=== PATIENT | female | born 1995 | race Two or more races ===

== ENCOUNTER 2017-09-07 20:07 | Emergency (ER) | payer MEDICAID ==
[~2017-09-07] VITALS: Ht 149.9 cm; Wt 42.2 kg
[2017-09-07] MEDS ORDERED: IV NS 0.9% 1,000 ML BAG IV ONE (22:00)
[2017-09-07 22:02] LABS: BASOPHILS % (AUTO) 0.3 % (0.0-2.0); HEMATOCRIT 45 % (33-45); HEMOGLOBIN 15.1 g/dL (11.5-14.8); LYMPHOCYTES # (AUTO) 2.2 /CMM (0.8-4.8); LYMPHOCYTES % (AUTO) 27.7 % (20.0-44.0); MEAN CORPUSCULAR HGB CONC 34 g/dl (31.0-36.0); MEAN CORPUSCULAR VOLUME 88 fL (82-100); MONOCYTES # (AUTO) 0.4 /CMM (0.1-1.30); NEUTROPHILS # (AUTO) 5.3 /CMM (1.8-8.9); PLATELET COUNT (AUTO) 306 /CMM (150-450); RDW COEFFICIENT OF VARIATION 13.6 (11.5-15.0); RED BLOOD CELL COUNT(AUTO) 5.09 MIL/uL (4.0-5.2)
[2017-09-07 22:23] LABS: APPEARANCE,URINE CLEAR (CLEAR); BILIRUBIN,URINE NEGATIVE (NEGATIVE); BLOOD, URINE TRACE-INTA Ery/uL (NEGATIVE); CARBON DIOXIDE 25 mmol/L (21-32); CHLORIDE 105 mmol/L (98-107); COLOR,URINE YELLOW (YELLOW); CREATININE 0.7 mg/dL (0.6-1.3); GLUCOSE 107 mg/dL (74-106); KETONES,URINE NEGATIVE (NEGATIVE); LEUKOCYTE ESTERASE ,URINE NEGATIVE (NEGATIVE); NITRITE, URINE NEGATIVE (NEGATIVE); PROTEIN,URINE NEGATIVE (NEGATIVE); SODIUM SERUM 140 mmol/L (136-145); UGLUCOSE NEGATIVE (NEGATIVE); UREA NITROGEN, BLOOD 7 mg/dL (7-18); UROBILINOGEN,URINE 0.2 EU/dL (0.2)
[2017-09-07 22:28] LABS: TROPONIN I < 0.017 ng/mL (0.00-0.056)
[2017-09-07 22:29] LABS: ALANINE AMINOTRANSFERASE 20 U/L (12-78); ALBUMIN 4.5 g/dL (3.4-5.0); ALKALINE PHOSPHATASE 61 U/L (46-116); ASPARTATE AMINOTRANSFERASE 20 U/L (15-37); BILIRUBIN,DIRECT 0.1 mg/dL (0.0-0.2); BILIRUBIN,TOTAL 0.5 mg/dL (0.2-1.0); TOTAL PROTEIN, SERUM 8.2 g/dL (6.4-8.2)
[2017-09-07 22:32] LABS: BACTERIA,URINE Few /HPF (None Seen); MUCUS,URINE Moderate /LPF (None Seen); SQUAMOUS EPITHELIAL CELL,UR Few /HPF (None Seen); WBC,URINE 0-2 /HPF (0-3)
[2017-09-07 22:41] LABS: INR 1.1 (0.87-1.13)
[2017-09-07] MEDS ORDERED: POTASSIUM CHLORIDE 20 MEQ TAB.PRT.SR PO ONE ×2 (23:00→23:07)
--- NOTE | 2017-09-07 23:15 | NUR ---
RECEIVED REPORT FROM KENDRA DANIEL FOR REBECCA. PT APPEARS COMFORTABLE. VSS.
--- NOTE | 2017-09-07 23:25 | NUR ---
PT TO CT.
[2017-09-07] MEDS ORDERED: IOHEXOL-350 100 ML VIAL IV ONE (23:27)
--- NOTE | 2017-09-07 23:34 | NUR ---
PT RETURNED FROM CT.
--- NOTE | 2017-09-08 00:45 | NUR ---
[facility] [employer] SPEAKING TO PT REGARDING POC/ RESULTS.
--- NOTE | 2017-09-08 00:48 | NUR ---
IV removed. Catheter intact and site benign. Pressure and 4x4 applied to site. No bleeding noted. Patient discharged to home in stable condition. Written and verbal after care instructions given. Patient verbalizes understanding of instruction. ambulatory with a steady gait. instructed pt not to drive. pt verbalize understanding.
[2017-09-08 00:49] VITALS: BP 125/62
== END 2017-09-08 00:49 | disposition home or self-care (01) ==
LOC: ER 20:07
DX: R42 Dizziness and giddiness (principal); R00.2 Palpitations; R79.1 Abnormal coagulation profile
CPT/HCPCS: 36415; 71275; 80048; 80076; 80305; 81001; 84484; 84703; 85025; 85378; 85730; 93005; 96360; 99285; A4606; J7030; Q9967; Z7610; 81000-TC

== ENCOUNTER 2017-12-19 23:28 | Emergency (ER) | payer MEDICAID ==
[~2017-12-19] VITALS: Ht 152.4 cm; Wt 39.9 kg
[2017-12-19] MEDS ORDERED: LORAZEPAM 1 MG TABLET ONE (23:59)
[2017-12-20] MEDS ORDERED: LORAZEPAM 1 MG TABLET PO ONE
--- NOTE | 2017-12-20 00:01 | NUR ---
BIBFRIEND C/O HEADACHE W/MULTIPLE OTHER COMPLAINTS. DENIES TRAUMA. PT DENIES N/V/D. PT DENIES DIZZINESS OR BLURRED VISSION. SKIN WARM AND DRY. PT IS AAOX4. NO S/S OF ACUTE DISTRESS NOTED. RR EVEN AND UNLABORED. PT PLACED ON LAY OUT INSPECTOR AND POX. PT SAFETY AND COMFORT MEASURES IN PLACE. BEDSIDE FOR EVAL
--- NOTE | 2017-12-20 00:04 | NUR ---
EMT BEDSIDE FOR ECG
[2017-12-20 00:23] LABS: BASOPHILS % (AUTO) 0.3 % (0.0-2.0); HEMATOCRIT 42 % (33-45); HEMOGLOBIN 13.8 g/dL (11.5-14.8); LYMPHOCYTES # (AUTO) 2.7 /CMM (0.8-4.8); LYMPHOCYTES % (AUTO) 28.4 % (20.0-44.0); MEAN CORPUSCULAR HGB CONC 33 g/dl (31.0-36.0); MEAN CORPUSCULAR VOLUME 86 fL (82-100); MONOCYTES # (AUTO) 0.6 /CMM (0.1-1.30); MONOCYTES % (AUTO) 6.2 % (2.0-12.0); NEUTROPHILS # (AUTO) 6.1 /CMM (1.8-8.9); NEUTROPHILS % (AUTO) 64.1 % (43.0-81.0); PLATELET COUNT (AUTO) 302 /CMM (150-450); RDW COEFFICIENT OF VARIATION 14.6 (11.5-15.0); RED BLOOD CELL COUNT(AUTO) 4.89 MIL/uL (4.0-5.2); WHITE BLOOD COUNT (AUTO) 9.5 K/uL (4.3-11.0)
[2017-12-20 00:33] LABS: CALCIUM, SERUM 9.1 mg/dL (8.5-10.1); CREATININE 0.8 mg/dL (0.6-1.3); POTASSIUM 3.4 mmol/L (3.5-5.1)
[2017-12-20 00:39] LABS: ALBUMIN 4.6 g/dL (3.4-5.0); BILIRUBIN,DIRECT 0.1 mg/dL (0.0-0.2); BILIRUBIN,TOTAL 0.6 mg/dL (0.2-1.0); TOTAL PROTEIN, SERUM 7.8 g/dL (6.4-8.2)
--- NOTE | 2017-12-20 01:42 | NUR ---
Denies any new or worsening sx's at this time. Resp even and unlabored. Patient discharged to home in stable condition. Written and verbal after care instructions given. Patient verbalizes understanding of instruction. Ambulatory with a steady gait
[2017-12-20 01:43] VITALS: BP 124/80
== END 2017-12-20 01:44 | disposition home or self-care (01) ==
LOC: ER 23:31
DX: R10.13 Epigastric pain (principal); F41.9 Anxiety disorder, unspecified; I49.8 Other specified cardiac arrhythmias; R07.9 Chest pain, unspecified
CPT/HCPCS: 36415; 71045; 80048; 80076; 85025; 93005; 99285; A4606; Z7610